=== PATIENT | female | born 2005 | race African-American/Black ===

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

== ENCOUNTER → 2023-08-29 07:59 | Outpatient (CLI) | payer OTHER ==
[~2023-08-29 07:59] MED LIST changes: +ALBUTEROL; +ZITHROMAX200 MG PO
[2023-08-29 09:25] LABS: PH,URINE 5.5 (5.0-8.0); URINE APPEARANCE Clear; URINE BILIRRUBIN Negative (NEGATIVE); URINE BLOOD Negative; URINE COLOR Yellow; URINE GLUCOSE Negative (NEGATIVE); URINE LEUKOCYTE Negative; URINE NITRATE Negative; URINE PROTEIN Negative (NEGATIVE); URINE UROBILINOGEN 0.2 E.U./dl
[2023-08-29 09:34] LABS: URINE EPITHELIAL CELLS 15.5 uL (0.0-38.8); URINE RBC 4.1 uL (0.0-20.8); URINE WBC 12.6 uL (0.0-23.2)
[2023-08-29 09:51] LABS: CALCIUM 9.3 mg/dL (8.5-10.1); CHOL HDL RATIO 1.7 (0-5.0); CREATININE SERUM 0.62 mg/dL (0.55-1.02); FREE TRIODOTIRONINE 2.72 pg/ml (2.18-3.98); POTASSIUM 3.92 mEq/L (3.5-5.1); T4 FREE 0.98 NG/ML (0.76-1.46); TSH 0.759 uIU/mL (0.358-3.74)
[2023-08-29 10:48] LABS: HEMATOCRIT 38.8 % (36.0-45.00); HEMOGLOBIN 13.6 g/dL (12.0-15.00); MEAN CELL VOLUME 98.5 fL (80.00-100.00); MEAN CORPUSCULAR HEMOGLOBIN 34.5 pg (27.00-32.0); PLATELET COUNT 194 K/uL (150-450); RED BLOOD COUNT 3.94 M/uL (4.00-6.00); RED CELL DISTRIBUTION WIDTH 12.6 % (11.5-14.5)
== END | disposition home or self-care (01) ==
LOC: LAB 07:59
DX: E03.8 Other specified hypothyroidism (principal); E78.5 Hyperlipidemia, unspecified; I10 Essential (primary) hypertension

== ENCOUNTER 2023-08-29 08:22 | Outpatient (CLI) | payer OTHER | END 2023-08-29 08:37 | disposition home or self-care (01) | LOC: RAD 08:22 | DX: M25.561 Pain in right knee (principal) ==

== ENCOUNTER 2025-07-11 09:37 | Outpatient (CLI) | payer OTHER | END 2025-07-11 09:39 | disposition home or self-care (01) | LOC: SONOGRAMA 09:37 | PROVIDERS: ATTEND Obstetrics & Gynecology | DX: R10.20 Pelvic and perineal pain unspecified side (principal) ==

== ENCOUNTER 2025-07-11 10:59 | Outpatient (CLI) | payer OTHER ==
[2025-07-11 11:38] LABS: URINE APPEARANCE Clear; URINE BILIRRUBIN Negative (NEGATIVE); URINE BLOOD Negative; URINE COLOR Yellow; URINE GLUCOSE Negative (NEGATIVE); URINE KETONE Trace (NEGATIVE); URINE LEUKOCYTE Negative; URINE NITRATE Negative; URINE PROTEIN Negative (NEGATIVE); URINE UROBILINOGEN 0.2 E.U./dl
[2025-07-11 11:39] LABS: URINE BACTERIA 10.7 uL (0.0-1933); URINE EPITHELIAL CELLS 4.9 uL (0.0-38.8); URINE RBC 12.9 uL (0.0-20.8); URINE WBC 4.3 uL (0.0-23.2)
[2025-07-11 11:42] LABS: URINE CAST 0.00 uL (0.0-1.40)
[2025-07-11 11:47] LABS: BASO % 0.3 % (0.1-1.2); EOS # 0.04 (0.04-0.54); EOS % 0.6 % (0.7-7.0); LYMPH # 1.74 (1.18-3.74); LYMPH % 24.4 % (19.3-53.1); MEAN PLATELET VOLUME 12.30 fl (9.4-12.4); MONO # 0.47 (0.24-0.82); MONO % 6.6 % (4.7-12.5); NEUT # 4.83 (1.56-6.13); NEUT % 67.8 % (34.0-71.1); RED CELL DISTRIBUTION WIDTH 12.6 % (11.6-14.4)
[2025-07-11 12:43] LABS: ALT/SGPT 19.0 U/L (12-78); AST/SGOT 14.0 U/L (15-37); BILIRUBIN TOTAL 0.89 mg/dL (0.3-1.2); BUN CREA RATIO 10.0 (7.0-25.0); CHOL HDL RATIO 1.8 (0-5.0); CREATININE SERUM 0.67 mg/dL (0.55-1.02); GFR 111.11; GLOBULINA 3.6 G/DL (2.4-3.5); GLUCOSE FASTING 86.0 mg/dL (65-100); HDL 80.0 mg/dl (40-60); LDL 52.0 mg/dl (0-130); OSMOLALITY SERUM 280.0 MOSM/KG (275-295); T4 FREE 0.96 NG/ML (0.76-1.46); TSH 0.642 uIU/mL (0.358-3.74); VLDL 13.0 (0-39)
== END 2025-07-11 11:04 | disposition home or self-care (01) ==
LOC: LAB 10:59
PROVIDERS: ATTEND Obstetrics & Gynecology
DX: E03.9 Hypothyroidism, unspecified (principal); I10 Essential (primary) hypertension; Z00.00 Encounter for general adult medical examination without abnormal findings; N39.0 Urinary tract infection, site not specified; Z11.4 Encounter for screening for human immunodeficiency virus [HIV]; E55.9 Vitamin D deficiency, unspecified; Z21 Asymptomatic human immunodeficiency virus [HIV] infection status; R79.9 Abnormal finding of blood chemistry, unspecified; R79.89 Other specified abnormal findings of blood chemistry

== ENCOUNTER 2025-07-14 11:47 | Outpatient (CLI) | payer OTHER ==
[2025-07-14 12:45] LABS: ob NEGATIVE (NEGATIVE)
== END 2025-07-14 11:49 | disposition home or self-care (01) ==
LOC: LAB 11:47
PROVIDERS: ATTEND Obstetrics & Gynecology
DX: E03.9 Hypothyroidism, unspecified (principal); E78.00 Pure hypercholesterolemia, unspecified; Z11.4 Encounter for screening for human immunodeficiency virus [HIV]; I10 Essential (primary) hypertension; Z00.00 Encounter for general adult medical examination without abnormal findings; Z12.11 Encounter for screening for malignant neoplasm of colon; R79.9 Abnormal finding of blood chemistry, unspecified; R79.89 Other specified abnormal findings of blood chemistry